=== PATIENT | female | born 1960 | race Caucasian/White ===

== ENCOUNTER → 2016-11-22 | Outpatient (CLI) | payer OTHER | LOC: FIMAGING 18:21 | PROVIDERS: ATTEND Physical Medicine & Rehabilitation | DX: M65.822 Other synovitis and tenosynovitis, left upper arm (principal); M67.421 Ganglion, right elbow ==

== ENCOUNTER 2017-01-03 03:54 | Emergency (ER) | payer OTHER ==
[2017-01-03 04:06] VITALS: PULSE 61; RESP 16
[2017-01-03] MEDS ORDERED: HYDROmorphONE/DILAUDID 2 MG TAB PO ONE ×2 (04:25→05:30)
--- NOTE | 2017-01-03 04:35 | EDPHY ---
H & P Stated Complaint: pain control s/p L arm surgery Time Seen by Provider: 01/03/17 04:07 HPI/ROS: Chief Complaint: Left arm pain HPI: 56-year-old woman who is status post left elbow tendon repair by Dr. Brown 3 days ago. She has been having difficulty with pain control. She has a history of chronic pain and takes tramadol daily. Initially she was discharged with Vicodin but was continuing to have 10/10 pain with this. She was seen by her orthopedist yesterday who increased her to Percocet. She has been taking 2 tablets every 4 hours with no significant relief in pain. She is not had any new numbness or tingling. No fevers or chills. She is presenting this morning complaining of persistent pain. Last medicine was taken about 11 30 last night. ROS: 10 point Review of Systems is negative except as noted in the HPI. PMH: Multiple sclerosis, multiple orthopedic problems Social History: No smoking, no alcohol, no recreational drug use Family History: non-contributory Physical Exam: Gen: Awake, Alert, uncomfortable appearing Ext: Mild edema, incision is clean dry and intact. There is no erythema or dehiscence. Sensations intact in the radial, median and ulnar nerve distribution. She has 2+ radial ulnar pulses. Cap refills less than 3 seconds. Skin: no rash Neuro: CN II-XII intact, Sensation grossly intact, Strength 5/5 in bilateral upper and lower extremities - Personal History Current Tetanus/Diphtheria Vaccine: Unsure Current Tetanus Diphtheria and Acellular Pertussis (TDAP): Unsure - Medical/Surgical History Hx Asthma: No Hx Chronic Respiratory Disease: No Hx Diabetes: No Hx Cardiac Disease: No Hx Renal Disease: No Hx Cirrhosis: No Hx Alcoholism: No Hx HIV/AIDS: No Hx Splenectomy or Spleen Trauma: No Other PMH: L arm tendon repair, MS, falopian tube removal, - Social History Smoking Status: Never smoked Constitutional: Initial Vital Signs Temperature (C) 36.8 C 01/03/17 04:03 Heart Rate 61 01/03/17 04:03 Respiratory Rate 16 01/03/17 04:03 Blood Pressure 142/75 H 01/03/17 04:03 O2 Sat (%) 95 01/03/17 04:03 O2 Delivery Mode Room Air Allergies/Adverse Reactions: amoxicillin trihydrate [From Augmentin] Allergy (Severe, Verified 02/01/13 20:54 ) NSAIDS (Non-Steroidal Anti-Inflamma Allergy (Severe, Verified 02/01/13 20:54) potassium clavulanate [From Augmentin] Allergy (Severe, Verified 02/01/13 20:54) codeine [Codeine] Allergy (Unknown, Verified 02/01/13 20:54) EES Allergy (Unknown, Uncoded 02/01/13 20:54) Home Medications: Medication Instructions Recorded Estrogens,Esterified [Menest] 02/01/13 Fingolimod HCl [Gilenya] 0.5 mg PO 02/01/13 GABAPENTIN 600 mg PO 02/01/13 LORazepam [Ativan 1 mg (RX)] 1 mg PO 02/01/13 TRAMADOL HCL [Ryzolt 300mg ER] 300 mg PO 02/01/13 Tramadol HCl [Ultram ER] 300 mg PO 02/01/13 Cephalexin 01/03/17 Cyclobenzaprine 01/03/17 DIAZEPAM 01/03/17 Ondansetron 01/03/17 Oxycodone HCl 01/03/17 Progesterone 01/03/17 Propranolol HCl 01/03/17 Vicodin 5-300 mg Tablet 01/03/17 Vitamin B12 01/03/17 Vitamin D3 01/03/17 Medical Decision Making ED Course/Re-evaluation: Patient has somewhat improved his required 4 mg of p. o. Dilaudid 2 and 1000 mg of acetaminophen here. She is neurovascularly intact and there is no evidence of infection, compartment syndrome, or any vascular or neurologic compromise. I have encouraged her to follow up with her hand surgeon later today. I have attempted to make a phone call but he is not on-call in the service on knocked neck to him directly. Patient did not wish to emergency department for him to call back after a voicemail was left on his phone. She is discharged home with plans to contact him later today for further pain management and evaluation. I have encouraged her to return for any concerns. - Data Points Medications Given: Discontinued Medications Acetaminophen (Tylenol) 1,000 mg PO EDNOW ONE Stop: 01/03/17 05:09 Last Admin: 01/03/17 05:09 Dose: 1,000 mg Al Hydroxide/Mg Hydroxide (Maalox Susp) 30 ml PO EDNOW ONE Stop: 01/03/17 05:09 Last Admin: 01/03/17 05:09 Dose: 30 ml Hydromorphone HCl (Dilaudid) 2 mg PO EDNOW ONE Stop: 01/03/17 04:26 Last Admin: 01/03/17 04:30 Dose: 2 mg Hydromorphone HCl (Dilaudid) 2 mg PO EDNOW ONE Stop: 01/03/17 05:31 Last Admin: 01/03/17 05:30 Dose: 2 mg Departure - Departure Disposition: Home, Routine, Self-Care Clinical Impression: Postoperative pain Condition: Good Instructions: Narcotic Pain Management (ED) Additional Instructions: Follow up with Dr. Brown later today for re-evaluation. Return to the emergency depart for increasing pain, numbness or tingling in your hand, discoloration, or any other concerns. Referrals: Fiona Curiel [Primary Care Provider] - As per Instructions Emmett Brown MD [Medical Doctor] - As per Instructions
[2017-01-03] MEDS ORDERED: ACETAMINOPHEN 500 MG TAB ONE (05:02)
[2017-01-03] MEDS ORDERED: MAG HYDROX/AL HYDROX/SIMETH 30 ML UDCUP ONE (05:02)
[2017-01-03] MEDS ORDERED: ACETAMINOPHEN 500 MG TAB PO ONE (05:08)
[2017-01-03] MEDS ORDERED: MAG HYDROX/AL HYDROX/SIMETH 30 ML UDCUP PO ONE (05:08)
[2017-01-03 06:44] VITALS: BP 112/74; TEMP 97.9; O2SAT 96
[2017-01-04] MEDS ORDERED: LIDOCAINE 2% 5 ML SDV ONE (07:16)
== END 2017-01-03 06:43 | disposition home or self-care (01) ==
DX: G89.18 Other acute postprocedural pain (principal); M79.602 Pain in left arm

== ENCOUNTER → 2017-01-04 | Day surgery (SDC) | payer OTHER ==
[~2017-01-04] MED LIST: MIDAZOLAM 2 MG/2 ML VIAL ONE; ONDANSETRON 4 MG/2 ML VIAL ONE; fentaNYL 100 MCG/2 ML INJ ONE
--- NOTE | 2017-01-04 07:05 | PDHPUP ---
History & Physical Update H&P update statement: This history and physical update is based on an assessment of the patient which was completed after admission or registration (within 24 hours), but prior to the surgery/procedure. H&P update: H&P reviewed & patient examined, no change in patient's condition since H&P completed
--- NOTE | 2017-01-04 07:05 | SOAPPROG ---
SOAP Progress Note Assessment/Plan: Assessment: 56F with h/o MS s/p elbow surgery POD #4 with intractable left upper extremity pain. Admitted to PACU by Dr. Araceli Santos for consideration of stellate ganglion vs supraclavicular brachial plexus block. Plan: Very low suspicion of CRPS given acute onset of symptoms and lack of classic sudomotor, vasomotor, and trophic changes. Likely a form of neuropathic post-op pain complicated by preexisting MS and opioid tolerance. - U/S guided supraclavicular brachial plexus block performed today by myself and Dr. Santos. Patient received midazolam 2mg IV for sedation, followed by 1% lidocaine subcutaneous infiltration. 80mm echogenic needle directed carefully to brachial plexus without evidence of nerve or vascular injury. Total of 20ml of 0.375% bupivicaine + dexamethasone 10mg was injected without complication. 01/04/17 07:00 ICD10 Worksheet Patient Problems: Problems Problem Status Onset Pain Acute - ICD10 Problem Qualifiers (1) Pain
== END | disposition home or self-care (01) ==
LOC: FSGY 06:07
PROVIDERS: ATTEND Anesthesiology Pain Medicine
PROC: 3E0T3CZ (ICD-10-PCS; principal; 2017-01-04)
DX: M25.522 Pain in left elbow (principal); G35 Multiple sclerosis
CPT/HCPCS: J2250; J2405; J3010

== ENCOUNTER → 2017-06-19 | Outpatient (CLI) | payer OTHER | LOC: FIMAGING 18:31 | DX: G35 Multiple sclerosis (principal) ==

== ENCOUNTER → 2018-02-05 | Outpatient (CLI) | payer OTHER | LOC: FIMAGING 19:30 | DX: G35 Multiple sclerosis (principal); M50.822 Other cervical disc disorders at C5-C6 level ==

== ENCOUNTER → 2018-07-04 | Outpatient (CLI) | payer OTHER | LOC: FIMAGING 19:08 | DX: G35 Multiple sclerosis (principal) ==